=== PATIENT | female | born 1995 | race Caucasian/White ===

== ENCOUNTER 2017-11-04 18:00 | Inpatient (IN) | END 2017-11-07 15:45 | disposition home or self-care (01) | DRG 775 ==

== ENCOUNTER 2018-10-25 21:44 | Emergency (ER) | payer BC ==
[~2018-10-25] VITALS: Ht 152.4 cm; Wt 61.0 kg
[~2018-10-25 21:44] MED LIST: PNV11TAB PO
[2018-10-25 21:46] VITALS: Ht 152.4 cm; Wt 61.0 kg
--- NOTE | 2018-10-25 23:18 | ERD ---
ER Documentation Chief Complaint Chief Complaint PAIN WITH COUGH SINCE YESTERDAY HPI This is a 23-year-old female presents here to emergency department with complaints of productive cough that is on and off for about 3 days, anterior chest pain on coughing. LMP: October 07, 2018. G0, . Denies headache, head injury, loss of consciousness, dizziness, neck pain, neck stiffness, throat pain, difficulty swallowing, difficulty breathing lying flat, shoulder pain, chest pain, back pain, abdominal pain, nausea, vomiting, constipation, diarrhea, urinary symptoms, or possibility being , loss of bowel and bladder control, trauma, injury, falls, difficulty walking due to pain, numbness or tingling sensation, calf pain, recent travel, recent major surgery in the last 3 weeks, calf pain, recent long travel, recent exposure to any illness, recent antibiotic use in the last 3 months, fever, chills, seizures. Past medical history: Surgical history: Social: Denies smoking, use of alcoholic beverages, use of illegal drugs. ROS All systems reviewed and are negative except as per history of present illness. Medications Home Meds Active Scripts Meclizine Hcl* (Antivert*) 12.5 Mg Tab, 12.5 MG PO Q6H PRN for DIZZINESS, #20 TAB Prov:PASILABANLINDA F 10/25/18 Benzonatate* (Tessalon Perle*) 100 Mg Capsule, 100 MG PO Q8H PRN for COUGH, #15 CAP Prov:PASILABANLINDA F 10/25/18 Ibuprofen* (Motrin*) 600 Mg Tab, 600 MG PO Q6H PRN for PAIN AND OR ELEVATED TEMP, #30 TAB Prov:PASILABANLINDA F 10/25/18 Azithromycin* (Zithromax*) 250 Mg Tablet, 250 MG PO .ZPACK DIRECTED, #6 TAB TAKE 500 MG (2 TABS) THE FIRST DAY THEN 250 MG (1 TAB) DAYS 2-5 Prov:MICHAEL KNIGHTAR F 10/25/18 Reported Medications [id number] ( 19) 1 Each Tablet, 1 TAB PO DAILY, TAB 11/04/17 Allergies Allergies: Coded Allergies: No Known Allergy (Unverified , 10/25/18) PMhx/Soc Medical and Surgical Hx: pt denies Medical Hx, pt denies Surgical Hx Hx Alcohol Use: No Hx Substance Use: No Hx Tobacco Use: No Smoking Status: Never smoker Physical Exam Vitals Physical Exam Head: Atraumatic Eyes: Normal Conjunctiva ENT: Normal External Ears, Nose and Mouth. Bilateral ears: TMs are not erythematous. No bleeding. No discharge. No hearing loss. No mastoid tenderness. Nose: There is no frontal or maxillary sinus tenderness palpation. Throat: Uvula is in midline and nondisplaced. Tonsils are +1 bilaterally without redness and without exudates. Tolerating secretions. Patent airway. Speaks full and clear sentences. No tripoding. Neck: Full range of motion. No meningismus. No nuchal rigidity. No signs of meningeal irritation. Resp: Clear to auscultation bilaterally. Chest area: Examined with female sample driller. Tenderness to palpation to anterior area. No vesicular lesions. No accessory muscle use in breathing. Cardio: Regular rate and rhythm, no murmurs Abd: Soft, non tender, non distended. Normal bowel sounds. Negative Eric sign. Skin: No petechiae or rashes. Color appears normal for ethnicity. No skin tenting. No signs of severe dehydration. Back: No midline or flank tenderness Ext: No cyanosis, or edema Neur: Awake and alert. No neurological deficits. Psych: Normal Mood and Affect Procedures/MDM Diagnostic tests: Clinical exam. Treatment: Not applicable. Re-evaluation: Not applicable. Differential diagnosis: I have low suspicion for pulmonary embolism, sepsis, pneumonia, bronchospasm, severe dehydration. Final diagnosis: Bronchitis. Costochondritis. Patient is insisting for me to prescribe her antibiotic for her cough. Prescription: Motrin. Azithromycin. Tessalon Perles. Antivert. Follow-up with PCP in the next 24-48 hours. Come back here in the emergency department for any new symptoms or any worsening symptoms. All questions and concerns were answered. Patient and family members verbalized understanding and agreed with plan of care. Hemodynamically stable on discharge. Departure Diagnosis: Primary Impression: Costochondritis Additional Impression: Bronchitis Condition: Stable Additional Instructions: Follow-up with PCP in the next 24-48 hours. Come back here in the emergency department for any new symptoms or any worsening symptoms. LINDA KNIGHT Oct 25, 2018 23:18
[2018-10-25] MEDS ORDERED: AZIT250T PO (23:30)
[2018-10-25] MEDS ORDERED: IBUP-1542 PO (23:31)
[2018-10-25] MEDS ORDERED: MECL12.574 PO (23:31)
[2018-10-25] MEDS ORDERED: BENZ-6 PO (23:31)
[2018-10-26 00:16] VITALS: BP 106/66; PULSE 66; RESP 16
== END 2018-10-26 00:16 | disposition home or self-care (01) ==
LOC: FTE 21:44
DX: M94.0 Chondrocostal junction syndrome [Tietze] (principal); J40 Bronchitis, not specified as acute or chronic
CPT/HCPCS: 99283

== ENCOUNTER 2018-12-29 13:11 | Emergency (ER) | payer BC ==
[~2018-12-29] VITALS: Ht 152.4 cm; Wt 61.1 kg
[~2018-12-29 13:11] MED LIST changes: +AZIT250T PO; +BENZ-6 PO; +FAMO-96 PO; +FLUT9.9S NASAL; +IBUP-1542 PO; +MECL12.574 PO
[2018-12-29 13:14] VITALS: BP 118/65; PULSE 78; RESP 16; Ht 152.4 cm; Wt 61.1 kg
[2018-12-29] MEDS ORDERED: KETOROLAC 30 MG INJ IM STA (15:32)
== END 2018-12-29 16:13 | disposition home or self-care (01) ==
LOC: FTE 13:11
DX: J32.9 Chronic sinusitis, unspecified (principal); R53.1 Weakness
CPT/HCPCS: 81025; 93005; 96372; J1885; Z7502